=== PATIENT | female | born 1950 | race Caucasian/White ===

== ENCOUNTER → 2017-09-20 | Outpatient (CLI) | payer BC ==
[~2017-09-20] MED LIST: ALBU90AE INH; ALPR0.5T6 PO; ASCO10004 PO; ASPI-496 PO; ATOR40TA78 PO; CHOL500050 PO; FLUO20CA19 PO; Iron PO; LEVO100T5 PO; LOSA50TA6 PO; NAPR220C PO; NICO-487 TD; OMEG1CAP23 PO
[2017-09-20 15:33] LABS: BASOPHILS # (AUTO) 0.04 x10^3/uL (0-0.1); BASOPHILS % (AUTO) 1 % (0-1); EOSINOPHILS # (AUTO) 0.15 x10^3/uL (0-0.4); EOSINOPHILS % (AUTO) 3 % (1-7); LYMPHOCYTES # (AUTO) 1.52 x10^3/uL (1-3.4); LYMPHOCYTES % (AUTO) 27 % (22-44); MD NO; MEAN CORPUSCULAR HEMOGLOBIN 30.2 pg (27.0-34.8); MEAN CORPUSCULAR HGB CONC 33.2 g/dL (32.4-35.8); MEAN CORPUSCULAR VOLUME 90.9 fL (80-100); MEAN PLATELET VOLUME 11.2 fL (7.4-10.4); MONOCYTES # (AUTO) 0.59 x10^3/uL (0.2-0.8); MONOCYTES % (AUTO) 10 % (2-9); NEUTROPHILS # (AUTO) 3.38 x10^3/uL (1.8-6.8); NEUTROPHILS % (AUTO) 60 % (42-75); PLATELET COUNT 174 x10^3/uL (130-400); RED BLOOD COUNT 5.08 x10^6/uL (3.82-5.3); RED CELL DISTRIBUTION WIDTH 14.6 % (9.6-15.2)
[2017-09-20 15:41] LABS: ANION GAP 4 mmol/L (5-15); CALCIUM 9.1 mg/dL (8.5-10.1); CHLORIDE 106 mmol/L (98-107)
[2017-09-20 15:44] LABS: ALANINE AMINOTRANSFERASE 30 U/L (12-78); ALKALINE PHOSPHATASE 95 U/L (45-117); TOTAL PROTEIN 6.7 g/dL (6.4-8.2)
[2017-09-20 15:46] LABS: INTERNATIONAL NORMALIZED RATIO 0.92 (0.93-1.1); PROTHROMBIN TIME 9.6 Seconds (9.6-11.5)
== END | disposition home or self-care (01) ==
LOC: STAR 14:17
PROVIDERS: ATTEND Specialist
DX: Z01.818 Encounter for other preprocedural examination (principal); I10 Essential (primary) hypertension; Z87.891 Personal history of nicotine dependence; N95.0 Postmenopausal bleeding; C54.1 Malignant neoplasm of endometrium; J98.6 Disorders of diaphragm
CPT/HCPCS: 36415; 71046; 80053; 85025; 85610; 85730; 93005

== ENCOUNTER 2017-09-27 06:43 | Day surgery (SDC) | payer BC ==
[~2017-09-27] VITALS: Ht 162.6 cm; Wt 90.0 kg
[2017-09-27] MEDS ORDERED: INDOCYANINE GREEN 25 MG VIAL ONE (06:48)
[2017-09-27] MEDS ORDERED: BUPIVACAINE/PF 0.25% ONE (06:48)
[2017-09-27] MEDS ORDERED: LACTATED RINGERS 1,000 ML IV SCH (07:58)
[2017-09-27 07:59] VITALS: BP 154/92
[2017-09-27] MEDS ORDERED: MIDAZOLAM 1 MG/ML, 2ML ONE (09:56)
[2017-09-27] MEDS ORDERED: FENTANYL PF 250 MCG/5ML ONE (09:56)
[2017-09-27] MEDS ORDERED: ONDANSETRON 2MG/ML, 2ML ONE (10:37)
[2017-09-27] MEDS ORDERED: DEXAMETHASONE 4 MG/ML, 1ML ONE (10:37)
[2017-09-27] MEDS ORDERED: NEOSTIGMINE 1 MG/ML, 10ML ONE (10:37)
[2017-09-27] MEDS ORDERED: PROPOFOL 10 MG/ML, 20ML ONE (10:37)
[2017-09-27] MEDS ORDERED: CEFAZOLIN 1,000 MG ONE (10:37)
[2017-09-27] MEDS ORDERED: EPHEDRINE 50 MG/ML, 1ML ONE (10:37)
[2017-09-27] MEDS ORDERED: GLYCOPYRROLATE 0.2MG/1ML, 5ML ONE (10:37)
[2017-09-27] MEDS ORDERED: SUCCINYLCHOLINE 20 MG/ML, 10ML ONE (10:37)
[2017-09-27] MEDS ORDERED: ROCURONIUM 10 MG/ML,10ML ONE (10:37)
[2017-09-27] MEDS ORDERED: FENTANYL PF 100 MCG/2ML ONE (12:57)
[2017-09-27] MEDS ORDERED: HYDROcodone/APAP 7.5-325MG/15ML UDC ONE (12:57)
[2017-09-27] MEDS ORDERED: ONDANSETRON ODT 4 MG ONE (12:57)
[2017-09-27] MEDS ORDERED: KETOROLAC 30 MG/1 ML ONE (12:57)
[2017-09-27] MEDS ORDERED: MEPERIDINE/PF 25MG/0.5ML IVPush PRN (13:00)
[2017-09-27] MEDS ORDERED: morphine SULFATE 10 MG/ML, 1ML IV PRN (13:00)
[2017-09-27] MEDS ORDERED: HYDROmorphone 1 MG/ML, 1ML IV PRN (13:00)
[2017-09-27] MEDS ORDERED: ONDANSETRON 2MG/ML, 2ML IVPush PRN (13:00)
[2017-09-27] MEDS ORDERED: ALBUTEROL/IPRATROPIUM 2.5MG/0.5MG, 3 ML NPPB PRN (13:00)
[2017-09-27] MEDS ORDERED: LABETALOL 5MG/ML, 20ML IV PRN (13:00)
[2017-09-27] MEDS ORDERED: METOCLOPRAMIDE 5 MG/ML, 2ML IV PRN (13:00)
[2017-09-27] MEDS: FENTANYL PF 100 MCG/2ML IV PRN ×3 (13:00→13:22)
[2017-09-27] MEDS ORDERED: hydrALAzine 20 MG/ML, 1ML IV PRN (13:00)
[2017-09-27] MEDS ORDERED: ONDANSETRON ODT 4 MG PO ONE (13:00)
[2017-09-27] MEDS ORDERED: PROMETHAZINE 25 MG/ML, 1ML IV PRN (13:00)
[2017-09-27] MEDS ORDERED: ALBUTEROL SULFATE 2.5 MG/3 ML NPPB PRN (13:00)
[2017-09-27] MEDS ORDERED: HYDROcodone/APAP 7.5-325MG/15ML UDC PO PRN (13:00)
[2017-09-27] MEDS ORDERED: KETOROLAC 30 MG/1 ML IVPush ONE (13:30)
[2017-09-27] MEDS ORDERED: ALBUTEROL/IPRATROPIUM 2.5MG/0.5MG, 3 ML ONE (17:48)
[2017-09-27] MEDS ORDERED: OXYcodone/APAP 5/325MG TABLET ONE (18:16)
[2017-09-27] MEDS ORDERED: OXYcodone/APAP 5/325MG TABLET PO ONE (18:30)
[2017-09-27] MEDS ORDERED: OXYcodone/APAP 5/325MG TABLET PO PRN (19:00)
[2017-09-27] MEDS ORDERED: ONDANSETRON 4 MG TABLET PO PRN (19:00)
[2017-09-27] MEDS ORDERED: OXYC-302 PO (19:59)
[2017-09-27] MEDS ORDERED: ONDA4TAB10 PO (19:59)
== END 2017-09-27 22:05 | disposition home or self-care (01) ==
LOC: OUT 06:43 → 4NOR 18:54 → OUT 22:05
PROVIDERS: ATTEND Specialist
DX: N85.2 Hypertrophy of uterus (principal); N95.0 Postmenopausal bleeding; J44.9 Chronic obstructive pulmonary disease, unspecified; E66.01 Morbid (severe) obesity due to excess calories; Z68.34 Body mass index [BMI] 34.0-34.9, adult
CPT/HCPCS: 36415; 38570; 58571; 86850; 86900; 86923; 88305; 88309; 88329; 88331; 94640; J0330; J0690; J1100; J1885; J2250; J2405; J2704; J2710; J3010; J3490; J7120; Q0162; S2900; 88307; J7620

== ENCOUNTER 2018-08-08 08:25 | Day surgery (SDC) | payer BC ==
[~2018-08-08] VITALS: Ht 162.6 cm; Wt 94.6 kg
[~2018-08-08 08:25] MED LIST changes: +LOSA50TA14 PO; -LOSA50TA6 PO; +ONDA4TAB10 PO; +OXYC-302 PO
[2018-08-08 08:50] VITALS: BP 135/70
[2018-08-08] MEDS ORDERED: LACTATED RINGERS 1,000 ML IV SCH (08:50)
[2018-08-08] MEDS ORDERED: FENTANYL PF 250 MCG/5ML ONE (09:34)
[2018-08-08] MEDS ORDERED: MIDAZOLAM 1 MG/ML, 2ML ONE (09:34)
[2018-08-08] MEDS ORDERED: BUPIVACAINE/PF 0.25% ONE (09:58)
[2018-08-08] MEDS ORDERED: EPINEPHRINE 1 MG/ML, 1ML ONE (09:58)
[2018-08-08] MEDS ORDERED: KETOROLAC 30 MG/1 ML ONE (10:18)
[2018-08-08] MEDS ORDERED: PHENYLEPHRINE 10 MG/ML ONE (10:18)
[2018-08-08] MEDS ORDERED: DEXAMETHASONE 4 MG/ML, 1ML ONE (10:49)
[2018-08-08] MEDS ORDERED: CEFAZOLIN 1,000 MG ONE (10:49)
[2018-08-08] MEDS ORDERED: ONDANSETRON 2MG/ML, 2ML ONE (10:49)
[2018-08-08] MEDS ORDERED: PROPOFOL 10 MG/ML, 20ML ONE (10:49)
[2018-08-08] MEDS ORDERED: MIDAZOLAM 1 MG/ML, 2ML IV PRN (11:00)
[2018-08-08] MEDS ORDERED: FENTANYL PF 100 MCG/2ML IV PRN (11:00)
[2018-08-08] MEDS ORDERED: ACETAMINOPHEN 325 MG TABLET PO PRN (11:00)
[2018-08-08] MEDS ORDERED: OXYcodone 5 MG/5 ML ORAL.SOL UDC PO PRN (11:00)
[2018-08-08] MEDS ORDERED: ONDANSETRON 2MG/ML, 2ML IV PRN (11:00)
[2018-08-08] MEDS ORDERED: ALBUTEROL/IPRATROPIUM 2.5MG/0.5MG, 3 ML NPPB PRN (11:00)
[2018-08-08] MEDS ORDERED: HYDROmorphone 2 MG/ML, 1ML IVPush PRN (11:00)
[2018-08-08] MEDS ORDERED: SCOPOLAMINE PATCH, 1.5MG PATCH.TD72 TD PRN (11:00)
[2018-08-08] MEDS ORDERED: DIAZEPAM 5 MG/ML, 2ML IVPush PRN (11:00)
[2018-08-08] MEDS ORDERED: PROMETHAZINE 25 MG/ML, 1ML IV PRN (11:00)
[2018-08-08] MEDS ORDERED: hydrALAzine 20 MG/ML, 1ML IV PRN (11:00)
== END 2018-08-08 13:00 | disposition home or self-care (01) ==
LOC: OUT 08:25
PROVIDERS: ATTEND Specialist
DX: A63.0 Anogenital (venereal) warts (principal); G43.909 Migraine, unspecified, not intractable, without status migrainosus; N95.0 Postmenopausal bleeding; E78.5 Hyperlipidemia, unspecified; E03.9 Hypothyroidism, unspecified; I25.10 Atherosclerotic heart disease of native coronary artery without angina pectoris; E66.9 Obesity, unspecified; Z68.35 Body mass index [BMI] 35.0-35.9, adult; Z98.890 Other specified postprocedural states; Z90.710 Acquired absence of both cervix and uterus; Z90.722 Acquired absence of ovaries, bilateral
CPT/HCPCS: 56620; 88305; J0171; J0690; J1100; J1885; J2250; J2370; J2405; J2704; J3010; J3490; J7120